=== PATIENT | female | born 1970 | race Two or more races ===

== ENCOUNTER 2025-01-27 15:37 | Emergency (ER) | payer OTHER ==
[~2025-01-27] VITALS: Ht 167.6 cm; Wt 54.4 kg
[~2025-01-27 15:37] MED LIST: ZEBUTAL 50-3251 EACH
[2025-01-27] MEDS ORDERED: TOPROL XL50 M1 PO (16:24)
[2025-01-27] MEDS ORDERED: ORPHENADRINE CITRATE 30 MG/ML AMPUL IM STA (17:03)
== END 2025-01-27 17:13 | disposition home or self-care (01) ==
LOC: ER 15:59
DX: R51.9 Headache, unspecified (principal)